=== PATIENT | male | born 1985 | race Caucasian/White ===

== ENCOUNTER 2016-05-15 10:11 | Emergency (ER) | payer OTHER ==
[2016-05-15] MEDS ORDERED: ceFAZolin Inj 1gm (Premix) 1 GM in Dextrose 1 BAG IV ONE (10:26)
[2016-05-15] MEDS ORDERED: NORMAL SALINE 10 ML SYRINGE FLUSH IVP PRN (10:26)
[2016-05-15] MEDS ORDERED: DIPH,PERTUSS,TET(ADACEL) VAC/PF 0.5 ML (Tdap) IM ONE (10:27)
[2016-05-15] MEDS ORDERED: Sodium Chloride 0.9% 1,000 ML PRIMARY IV ONE (10:32)
--- NOTE | 2016-05-15 11:02 | DI ---
XR HAND MIN 3VW,05/15/2016 10:27 AM: Clinical History: Trauma Previous Exam: None at this facility. Findings: 2 views of the left hand are obtained, and demonstrate a severely comminuted and displaced fracture o f the left first proximal phalanx with subcutaneous air and soft tissue swelling. This does not invol ve the joint spaces. Postsurgical changes are seen of the left distal radius as well. Impression: Comminuted and somewhat displaced fracture of the left first proximal phalanx.
--- NOTE | 2016-05-15 13:09 | PDOC ---
Hand / Wrist Injury HPI - General Chief Complaint: Upper Extremity Problem/Injury Stated Complaint: BROKEN THUMB (L) Date Seen by Provider: 05/15/16 Time Seen by Provider: 10:15 Source: POSITIVE: Patient, Other (Coworker) Exam Limitations: POSITIVE: No limitations Nurse's Notes Reviewed & Considered: Yes - History of Present Illness Initial Comments: The patient is a 31-year-old male. 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 He sustained a laceration to the proximal and lateral aspect of the thumb. He states that he thought he could visualize some bone poking through the laceration immediately after the incident. He complains of swelling and "tightness"around the wound. Patient has had surgical correction of a left forearm fracture in the past. He's on no medications, but he did take some aspirin around 9:00 immediately after the incident. He last ate breakfast at 6 AM and had some water to drink at 9 AM. Have you received a tetanus shot in the past 10 years?: No Body Location Affected: REPORTS: Upper Extremity (L) Severity: Moderate Location at Time of Onset: REPORTS: Work Context: REPORTS: Laceration, Crush Location of Injury: REPORTS: Left, Hand, 1st Finger Quality: REPORTS: "Pain" Modifying Factors: REPORTS: Movement, Other (Direct palpation) Associated Symptoms: DENIES: Arm (R), Arm (L), Tingling Distally, Numbness Distally, Loss of Feeling, Loss of Power, Other Any Prior Injuries Related to Current Complaint?: No - Patient Home Medications Home Medications: Home Medications Aspirin 325 mg PO DAILY PRN 05/15/16 - Patient Allergies Allergies/Adverse Reactions: Allergies Allergy/AdvReac Type Severity Reaction Status Date / Time No Known Allergies Allergy Verified 05/15/16 10:22 Past Medical History - heen HEENT History: Denies History Cardiovascular History: Denies History Respiratory History: Denies History Gastrointestinal History: Denies History Genitourinary History: Denies History Endocrine History: Denies History Musculoskeletal History: Denies History Prosthesis or Implant: No Neurological History: Denies History Blood Disorders: Denies History Psychiatric History: Denies History History of Sexually Transmitted Diseases: No Male Reproductive History: Denies History Cancer History: Denies History In Past Year Been Physically Harmed or Verbally Threatened: No (PER PATIENT) History of MDRO: No History of Other Communicable Diseases: No Tobacco Use: Never Smoker Alcohol Use: Occasionally Substance Use Type: None Previous Surgical History: Yes Type / Date of Surgery: LEFT FOREARM Anesthesia Reactions: No Malignant Hyperthermia: No Family History of Malignant Hyperthermia: No Significant Family History: No pertinent family hx Past Medical History Reviewed: Reviewed - No Changes ROS - Limitations ROS Limitations: No Limitations Constitution: REPORTS: Denies Symptoms Cardiovascular: REPORTS: Denies Cardiac Symptoms Respiratory: REPORTS: Denies Resp Symptoms Neurological: REPORTS: Denies Neuro Symptoms Gastrointestinal: REPORTS: Denies GI Symptoms Endocrine: REPORTS: Denies Symptoms Musculoskeletal: REPORTS: Recent Injury (Left thumb as above) Genitourinary: REPORTS: Denies Symptoms Eyes: REPORTS: Denies Symptoms ENT: REPORTS: Denies Symptoms Skin: REPORTS: Other (Laceration and swelling left thumb) Lympathic: REPORTS: Denies Lympathic Symptoms Immunologic: POSITIVE: Denies Symptoms Psychiatric: POSITIVE: Denies Psych Symptoms Hand / Wrist Injury Exam - General Appearance General Appearance: POSITIVE: Alert, Cooperative, No Evidence of Trauma, Moderate Distress - Extremities Upper Extremity: POSITIVE: No Evidence of FB, Soft Tissue Tenderness, Bony Tenderness, Swelling (proximal half of left thumb), Deformity (proximal half of left thumb), Limited ROM, Uninjured Above Wrist, See Diagram. NEGATIVE: Normal ROM (patient not able to flex at IP joint), Snuff Box Position Tender Neurovascular / Tendon: POSITIVE: Sensation Normal (grossly). NEGATIVE: Motor Normal (patient not able to flex at IP joint) Skin: POSITIVE: See Diagram - Neck / Back Neck/Back: POSITIVE: Normal Inspection, Non-Tender, Painless ROM - Respiratory / CVS Respiratory / CVS: POSITIVE: Chest Non Tender, No Ecchymosis, Breath Sounds Normal, No Respiratory Distress, Heart Sounds Normal, Regular Rate/Rhythm Peripheral Pulses: Radial (R): 2+, Radial (L): 2+ Images - Hands Hand: 1 - Laceration 2 - Pain and swelling 3 - Pain and swelling Hand / Wrist Injury Progress - Results Reviewed by me Xrays/CTs/US Reviewed by me: Yes Discussed with Radiologist: Yes Radiology Findings: Comminuted fracture proximal phalange less thumb; no obvious intra-articular involvement. - Patient's Progress Pain Medication Addressed: POSITIVE: Patient Refused Re-Examine Time: 13:00 Re-Examine Comment: Wound irrigated. 1 g of Ancef IV given. Tdap given. Patient refused analgesia. Re-Examine Time:: 13:45 Re-Examine Comment: No orthopedist available in [place]. Contacted orthopedic surgeon environmental services supervisor in [place], Dr. Beltran. Dr. Beltran returned call at [phone], and accepted patient in transfer. Status: POSITIVE: Improved, Re-Examined - Consult Consult (If Yes, Name of Consulting MD & Time Called): Yes (Dr. Beltran, orthopedics, [id number]) Consulting MD will see pt:: POSITIVE: Recommended Transfer Counseled: POSITIVE: Patient, RE: Radiology Results, RE: DX, RE: Need for F/U Patient Care Time - Estimated PCT Patient Care Time (In Minutes): 45 Vital Signs - Recent Vital Signs Vital Signs: Vital Signs (Last 8 hours) Temp Pulse Resp BP Pulse Ox 05/15/16 10:11 97.0 F 77 17 118/85 93 - VS Reviewed Vital Signs Reviewed: Yes Discharge Clinical Impression: Fracture of thumb Discharge Disposition: Transferred to Short Term Facility Condition: Fair Patient Instructions Given at Discharge: Thumb Fracture (ED) Additional Instructions: You have a fracture to the first bone in your left thumb. This fracture may communicate with the laceration of the thumb, producing what is known as an open fracture. You need specialty orthopedic care for this injury. We do not have an orthopedist available in [place], unfortunately. I therefore contacted Dr. Beltran, orthopedist in [place], and he will care for your injury. We gave you antibiotics intravenously and a tetanus vaccination and irrigated your wound out in our facility. Please have your associate drive you directly to the emergency room at [facility] for further evaluation and treatment. Elevate hand. Eat or drink nothing in route. Follow Up With: NONE,NONE [Primary Care Provider] - (Instructions as above. Proceed directly to [facility] for further evaluation and treatment. Return here as necessary.) Date Decision to Transfer to Another Facility: 05/15/16 Time Decision to Transfer to Another Facility: 11:00
[2016-05-15 13:20] VITALS: RESP 15; TEMP 99.6
[2016-05-15] MEDS ORDERED: Sodium Chloride 0.9% 1,000 ML ONE (14:24)
== END 2016-05-15 13:17 | disposition short-term general hospital (02) ==
LOC: ER 10:11
DX: S62.522A Displaced fracture of distal phalanx of left thumb, initial encounter for closed fracture (principal); S61.012A Laceration without foreign body of left thumb without damage to nail, initial encounter; W31.89XA Contact with other specified machinery, initial encounter; Y92.65 Oil rig as the place of occurrence of the external cause; Y99.0 Civilian activity done for income or pay
CPT/HCPCS: 73130; 90471; 96365; 99283; J0690; J7030